=== PATIENT | female | born 1990 | race Two or more races ===

== ENCOUNTER 2020-03-24 15:42 | Emergency (ER) | payer OTHER ==
[~2020-03-24] VITALS: Ht 170.2 cm; Wt 65.8 kg
[2020-03-24] MEDS ORDERED: SKELAXIN800 MG PO (17:37)
[2020-03-24] MEDS ORDERED: ULTRACET PO (17:37)
[2020-03-24] MEDS ORDERED: ACETAMINOPHEN500 M1 (17:55)
== END 2020-03-24 17:58 | disposition home or self-care (01) ==
LOC: ER 15:42
DX: M54.5 Low back pain (principal)